=== PATIENT | female | born 1955 | race Caucasian/White ===

== ENCOUNTER 2017-03-06 15:47 | Emergency (ER) | payer OTHER ==
[~2017-03-06] VITALS: Ht 154.9 cm; Wt 59.0 kg
[2017-03-06] MEDS ORDERED: LIDODERM 5% P1 PATCH TD (19:11)
[2017-03-06] MEDS ORDERED: FLEXERIL5 MG PO (19:11)
[2017-03-06] MEDS ORDERED: MOTRIN600 MG PO (19:11)
[2017-03-06 19:31] VITALS: BP 125/86
== END 2017-03-06 19:40 | disposition home or self-care (01) ==
LOC: EME 15:47
DX: M54.12 Radiculopathy, cervical region (principal); M62.838 Other muscle spasm; M25.519 Pain in unspecified shoulder; V49.9XXA Car occupant (driver) (passenger) injured in unspecified traffic accident, initial encounter; F17.200 Nicotine dependence, unspecified, uncomplicated
CPT/HCPCS: 72040; 99281; 99284; J1885

== ENCOUNTER 2017-06-17 11:55 | Emergency (ER) | payer OTHER ==
[~2017-06-17] VITALS: Ht 154.9 cm; Wt 55.4 kg
[~2017-06-17 11:55] MED LIST: ENDOCET 5-3251 EACH PO; FLEXERIL5 MG PO; IMITREX50 MG PO; LIDODERM 5% P1 PATCH TD; LOVENOX40 MG/0.4 SC; MOTRIN600 MG PO; NEURONTIN100 MG PO; TOPAMAX100 MG PO; TYLENOL REGULA325 MG PO; ULTRAM50 MG PO; WELLBUTRIN XL150 MG PO
[2017-06-17] MEDS ORDERED: PERCOCET 5/31 TABLET PO (15:50)
[2017-06-17 17:32] VITALS: BP 133/81
== END 2017-06-17 17:32 | disposition home or self-care (01) ==
LOC: EME 11:55
DX: M79.641 Pain in right hand (principal); M79.89 Other specified soft tissue disorders; S52.502D Unspecified fracture of the lower end of left radius, subsequent encounter for closed fracture with routine healing; Z47.89 Encounter for other orthopedic aftercare; S82.401D Unspecified fracture of shaft of right fibula, subsequent encounter for closed fracture with routine healing; S82.201D Unspecified fracture of shaft of right tibia, subsequent encounter for closed fracture with routine healing; W17.81XD Fall down embankment (hill), subsequent encounter; F17.200 Nicotine dependence, unspecified, uncomplicated; F32.9 Major depressive disorder, single episode, unspecified
CPT/HCPCS: 73110; 99281; 99284

== ENCOUNTER 2018-01-19 19:24 | Inpatient (IN) | payer OTHER ==
[~2018-01-19] VITALS: Ht 154.9 cm; Wt 57.1 kg
[~2018-01-19 19:24] MED LIST changes: +PERCOCET 5/31 TABLET PO
[2018-01-19 19:57] LABS: HEMOGLOBIN 14.8 G/DL (11.9-15.5); MCH 32.2 PG (29.0-34.0); MCHC 34.4 G/DL (30.0-36.0); MCV 93.7 FL (83-99); PLATELET COUNT 272 K/uL (156-360); RBC DIS.WIDTH-CV 12.2 % (11.8-14.6); RBC DIS.WIDTH-SD 41.8 % (39-53); RED BLOOD COUNT 4.59 M/uL (3.80-5.20); WHITE BLOOD COUNT 19.8 K/uL (4.1-10.2)
[2018-01-19 20:06] LABS: CHLORIDE 115 mEq/L (99-109); POTASSIUM 4.1 mEq/L (3.7-5.4); SODIUM 144 mEq/L (136-147)
[2018-01-19 20:08] LABS: GLUCOSE 149 mg/dL (70-99)
[2018-01-19 20:12] LABS: GFR ESTIMATE (CALCULATED) > 59 mL/min/
[2018-01-19 20:13] LABS: UREA NITROGEN (BUN) 21 mg/dL (9-23)
[2018-01-20] VITALS (7 sets, daily range): BP systolic 84–131; BP diastolic 48–65
[2018-01-20] MEDS ORDERED: TYLENOL EXTRA500 MG PO (00:48)
[2018-01-20] MEDS ORDERED: OSTEO BI-FLEX1 EAC1 PO (00:49)
[2018-01-20] MEDS ORDERED: TOPAMAX100 MG PO (00:49)
[2018-01-20] MEDS ORDERED: CYMBALTA30 MG PO (00:49)
[2018-01-20] MEDS ORDERED: CALCIUM600 M1 PO (00:50)
[2018-01-20] MEDS ORDERED: ZOFRAN8 MG PO (00:50)
[2018-01-20 18:29] LABS: HEMATOCRIT 36.5 % (36.0-46.0); HEMOGLOBIN 11.7 G/DL (11.9-15.5); MCH 31.2 PG (29.0-34.0); MCHC 32.1 G/DL (30.0-36.0); MCV 97.3 FL (83-99); PLATELET COUNT 213 K/uL (156-360); RBC DIS.WIDTH-CV 12.7 % (11.8-14.6); RBC DIS.WIDTH-SD 45.1 % (39-53); RED BLOOD COUNT 3.75 M/uL (3.80-5.20); WHITE BLOOD COUNT 9.2 K/uL (4.1-10.2)
[2018-01-20 18:34] LABS: CHLORIDE 117 MEQ/L (99-109); CREATININE 0.7 MG/DL (0.6-1.3); GFR ESTIMATE (CALCULATED) > 59 mL/min/; GLUCOSE 153 mg/dL (70-99); POTASSIUM 3.7 MEQ/L (3.7-5.4); SODIUM 143 MEQ/L (136-147); UREA NITROGEN (BUN) 13 mg/dL (9-23)
[2018-01-21 00:10] VITALS: BP 101/55
[2018-01-21 04:29] VITALS: BP 92/52
[2018-01-21 05:52] LABS: HEMATOCRIT 36.4 % (36.0-46.0); HEMOGLOBIN 11.4 G/DL (11.9-15.5); MCH 31.1 PG (29.0-34.0); MCHC 31.3 G/DL (30.0-36.0); MCV 99.2 FL (83-99); PLATELET COUNT 202 K/uL (156-360); RBC DIS.WIDTH-CV 12.9 % (11.8-14.6); RBC DIS.WIDTH-SD 46.9 % (39-53); RED BLOOD COUNT 3.67 M/uL (3.80-5.20); WHITE BLOOD COUNT 9.7 K/uL (4.1-10.2)
[2018-01-21 06:16] LABS: CHLORIDE 117 MEQ/L (99-109); CREATININE 0.9 MG/DL (0.6-1.3); GFR ESTIMATE (CALCULATED) > 59 mL/min/; GLUCOSE 130 mg/dL (70-99); POTASSIUM 4.1 MEQ/L (3.7-5.4); SODIUM 144 MEQ/L (136-147); UREA NITROGEN (BUN) 11 mg/dL (9-23)
[2018-01-21 07:06] VITALS: BP 96/51
[2018-01-21 11:16] VITALS: BP 94/55
[2018-01-21 15:25] VITALS: BP 102/55
[2018-01-21 19:49] VITALS: BP 95/57
[2018-01-22 00:33] VITALS: BP 103/59
[2018-01-22 04:32] VITALS: BP 102/60
[2018-01-22 07:00] VITALS: BP 129/69
[2018-01-22 16:20] VITALS: BP 138/80
[2018-01-23 00:16] VITALS: BP 148/70
[2018-01-23 06:55] LABS: BASOPHIL (%) 0.3 % (0-1); EOSINOPHIL (%) 1.6 % (0-5); EOSINOPHIL COUNT 0.2 K/uL (0-0.3); HEMATOCRIT 30.8 % (36.0-46.0); HEMOGLOBIN 9.8 G/DL (11.9-15.5); IMMATURE GRANULOCYTE (%) 0.6 % (0.0-0.7); LYMPHOCYTE COUNT 1.3 K/uL (1.0-2.8); MCH 30.7 PG (29.0-34.0); MCHC 31.8 G/DL (30.0-36.0); MCV 96.6 FL (83-99); MONOCYTE (%) 10.6 % (3-12); MONOCYTE COUNT 1.1 K/uL (0-0.8); NEUTROPHIL (%) 74.9 % (45-76); PLATELET COUNT 222 K/uL (156-360); RBC DIS.WIDTH-CV 12.6 % (11.8-14.6); RBC DIS.WIDTH-SD 44.8 % (39-53); RED BLOOD COUNT 3.19 M/uL (3.80-5.20); WHITE BLOOD COUNT 10.7 K/uL (4.1-10.2)
[2018-01-23 07:16] LABS: CHLORIDE 115 MEQ/L (99-109); CREATININE 0.6 MG/DL (0.6-1.3); GFR ESTIMATE (CALCULATED) > 59 mL/min/; GLUCOSE 115 mg/dL (70-99); POTASSIUM 3.6 MEQ/L (3.7-5.4); SODIUM 142 MEQ/L (136-147); UREA NITROGEN (BUN) 8 mg/dL (9-23)
[2018-01-23 07:30] VITALS: BP 149/85
[2018-01-23 11:17] VITALS: BP 127/79
[2018-01-23 15:53] VITALS: BP 123/65
[2018-01-24 00:39] VITALS: BP 144/72
[2018-01-24 08:10] VITALS: BP 145/74
[2018-01-24 12:10] VITALS: BP 145/88
[2018-01-24 15:38] VITALS: BP 168/78
[2018-01-24 19:00] VITALS: BP 118/61
[2018-01-24 23:56] VITALS: BP 131/58
[2018-01-25 06:08] LABS: HEMATOCRIT 29.4 % (36.0-46.0); HEMOGLOBIN 9.8 G/DL (11.9-15.5); MCH 31.3 PG (29.0-34.0); MCHC 33.3 G/DL (30.0-36.0); MCV 93.9 FL (83-99); PLATELET COUNT 246 K/uL (156-360); RBC DIS.WIDTH-CV 12.3 % (11.8-14.6); RBC DIS.WIDTH-SD 42.5 % (39-53); RED BLOOD COUNT 3.13 M/uL (3.80-5.20); WHITE BLOOD COUNT 9.8 K/uL (4.1-10.2)
[2018-01-25 06:46] LABS: CHLORIDE 105 MEQ/L (99-109); CREATININE 0.6 MG/DL (0.6-1.3); GFR ESTIMATE (CALCULATED) > 59 mL/min/; GLUCOSE 119 mg/dL (70-99); POTASSIUM 3.3 MEQ/L (3.7-5.4); SODIUM 140 MEQ/L (136-147); UREA NITROGEN (BUN) 4 mg/dL (9-23)
[2018-01-25 08:04] VITALS: BP 164/84
[2018-01-25 15:49] VITALS: BP 134/72
[2018-01-26 00:01] VITALS: BP 136/78
[2018-01-26 08:45] VITALS: BP 169/75
[2018-01-26 15:52] VITALS: BP 154/74
[2018-01-26 23:25] VITALS: BP 131/75
[2018-01-27 06:00] LABS: CHLORIDE 105 MEQ/L (99-109); CREATININE 0.5 MG/DL (0.6-1.3); GFR ESTIMATE (CALCULATED) > 59 mL/min/; GLUCOSE 107 mg/dL (70-99); POTASSIUM 3.9 MEQ/L (3.7-5.4); SODIUM 141 MEQ/L (136-147); UREA NITROGEN (BUN) 4 mg/dL (9-23)
[2018-01-27 08:26] VITALS: BP 143/68
[2018-01-27] MEDS ORDERED: NORCO 5/3251 TABLET PO (11:25)
[2018-01-27 15:54] VITALS: BP 129/76
[2018-01-27 23:51] VITALS: BP 129/75
[2018-01-28 08:02] VITALS: BP 178/83
== END 2018-01-28 15:35 | disposition home health service (06) | DRG 330 ==
LOC: EME → EDBD 19:24 → EME 19:24 → 2EAST 01-20 00:55 → EDOF 01-20 00:55 → ENRESERV 01-20 01:07 → 2EAST 01-20 01:52
PROVIDERS: Physician Assistant Medical; Physician Assistant Surgical; Surgery
DX: K57.20 Diverticulitis of large intestine with perforation and abscess without bleeding (principal); J98.11 Atelectasis; I95.9 Hypotension, unspecified; T40.2X5A Adverse effect of other opioids, initial encounter; Y92.239 Unspecified place in hospital as the place of occurrence of the external cause; R40.0 Somnolence; G43.909 Migraine, unspecified, not intractable, without status migrainosus; F32.9 Major depressive disorder, single episode, unspecified
CPT/HCPCS: 74018; 74177; 80048; 84132; 85025; 85027; 86850; 86900; 86901; 88307; 94799; 97530 GO; 99281; 99285; J0131; J0330; J1100; J1170; J1200; J1650; J1885; J2250; J2405; J2543; J2710; J3010; J3480; J7030; J7040; J7050; J7643; S0028

== ENCOUNTER 2018-02-02 10:43 | Inpatient (IN) | payer OTHER ==
[~2018-02-02] VITALS: Ht 154.9 cm; Wt 55.8 kg
[~2018-02-02 10:43] MED LIST changes: +CALCIUM600 M1 PO; +CYMBALTA30 MG PO; +NORCO 5/3251 TABLET PO; +OSTEO BI-FLEX1 EAC1 PO; +TYLENOL EXTRA500 MG PO; +ZOFRAN8 MG PO
[2018-02-02 12:43] LABS: BASOPHIL (%) 0.7 % (0-1); BASOPHIL COUNT 0.1 K/uL (0-0.1); EOSINOPHIL (%) 0.8 % (0-5); EOSINOPHIL COUNT 0.1 K/uL (0-0.3); HEMOGLOBIN 11.8 G/DL (11.9-15.5); IMMATURE GRANULOCYTE (%) 1.4 % (0.0-0.7); LYMPHOCYTE (%) 13.5 % (15-42); LYMPHOCYTE COUNT 1.6 K/uL (1.0-2.8); MCH 31.5 PG (29.0-34.0); MCHC 33.7 G/DL (30.0-36.0); MCV 93.3 FL (83-99); MONOCYTE (%) 12.1 % (3-12); MONOCYTE COUNT 1.5 K/uL (0-0.8); NEUTROPHIL (%) 71.5 % (45-76); NEUTROPHIL COUNT 8.6 K/uL (1.8-6.4); RBC DIS.WIDTH-CV 12.9 % (11.8-14.6); RBC DIS.WIDTH-SD 43.8 % (39-53); RED BLOOD COUNT 3.75 M/uL (3.80-5.20)
[2018-02-02 12:44] LABS: ALBUMIN 3.5 g/dL (3.2-4.8); CHLORIDE 105 mEq/L (99-109); POTASSIUM 3.8 mEq/L (3.7-5.4); SODIUM 139 mEq/L (136-147)
[2018-02-02 12:46] LABS: GLUCOSE 97 mg/dL (70-99); TOTAL PROTEIN 7.8 g/dL (6.4-8.3)
[2018-02-02 12:48] LABS: TOTAL BILIRUBIN 0.3 mg/dL (0.0-1.0)
[2018-02-02 12:49] LABS: INTER. NORMALIZED RATIO 1.3
[2018-02-02 12:50] LABS: ALKALINE PHOSPHATASE 110 IU/L (3-129); CREATININE 0.9 mg/dL (0.6-1.3)
[2018-02-02 12:51] LABS: AST (GOT) 49 IU/L (2-34); UREA NITROGEN (BUN) 9 mg/dL (9-23)
[2018-02-02 12:52] LABS: DIRECT BILIRUBIN 0.1 mg/dL (0.0-0.3); PTT 29.8 SEC (25-37)
[2018-02-02 12:53] LABS: ALT (GPT) 24 IU/L (3-49); GFR ESTIMATE (CALCULATED) > 59 mL/min/; LIPASE 33 U/L (1.0-51.0)
[2018-02-02 13:21] LABS: PLAT.SUFFICIENCY INCREASED; TROP-I INTERPRETATION NEGATIVE; TROPONIN-I < 0.01 ng/mL (0.0-0.30)
[2018-02-02 14:02] LABS: PLATELET COUNT 437 K/uL (156-360)
[2018-02-02 21:45] VITALS: BP 145/79
[2018-02-02 23:26] VITALS: BP 116/57
[2018-02-03 03:32] VITALS: BP 110/62
[2018-02-03 07:21] VITALS: BP 110/68
[2018-02-03 08:25] LABS: BASOPHIL (%) 0.6 % (0-1); BASOPHIL COUNT 0.1 K/uL (0-0.1); EOSINOPHIL (%) 0.8 % (0-5); EOSINOPHIL COUNT 0.1 K/uL (0-0.3); HEMATOCRIT 32.3 % (36.0-46.0); HEMOGLOBIN 10.5 G/DL (11.9-15.5); IMMATURE GRANULOCYTE (%) 1.3 % (0.0-0.7); LYMPHOCYTE (%) 12.1 % (15-42); LYMPHOCYTE COUNT 1.5 K/uL (1.0-2.8); MCH 30.9 PG (29.0-34.0); MCHC 32.5 G/DL (30.0-36.0); MONOCYTE COUNT 1.6 K/uL (0-0.8); NEUTROPHIL (%) 72.2 % (45-76); NEUTROPHIL COUNT 9.2 K/uL (1.8-6.4); WHITE BLOOD COUNT 12.7 K/uL (4.1-10.2)
[2018-02-03 08:35] LABS: PLATELET COUNT 688 K/uL (156-360)
[2018-02-03 08:42] LABS: ALBUMIN 2.9 G/DL (3.2-4.8); CHLORIDE 108 MEQ/L (99-109); POTASSIUM 4.1 MEQ/L (3.7-5.4); SODIUM 139 MEQ/L (136-147); TOTAL BILIRUBIN 0.3 MG/DL (0.0-1.0)
[2018-02-03 08:48] LABS: ALKALINE PHOSPHATASE 87 IU/L (3-129); ALT (GPT) 14 IU/L (3-49); AST (GOT) 12 IU/L (2-34); CREATININE 0.8 MG/DL (0.6-1.3); GFR ESTIMATE (CALCULATED) > 59 mL/min/; GLUCOSE 118 mg/dL (70-99); TOTAL PROTEIN 5.6 G/DL (6.4-8.3); UREA NITROGEN (BUN) 10 mg/dL (9-23)
[2018-02-03 11:17] VITALS: BP 133/79
[2018-02-03 15:22] VITALS: BP 128/78
[2018-02-03 20:20] VITALS: BP 146/70
[2018-02-04] VITALS (7 sets, daily range): BP systolic 141–160; BP diastolic 67–95
[2018-02-04 06:34] LABS: BASOPHIL (%) 0.9 % (0-1); BASOPHIL COUNT 0.1 K/uL (0-0.1); EOSINOPHIL (%) 1.8 % (0-5); EOSINOPHIL COUNT 0.2 K/uL (0-0.3); HEMATOCRIT 35.5 % (36.0-46.0); HEMOGLOBIN 11.5 G/DL (11.9-15.5); IMMATURE GRANULOCYTE (%) 1.9 % (0.0-0.7); LYMPHOCYTE COUNT 1.8 K/uL (1.0-2.8); MCH 30.4 PG (29.0-34.0); MCHC 32.4 G/DL (30.0-36.0); MCV 93.9 FL (83-99); MONOCYTE (%) 10.5 % (3-12); MONOCYTE COUNT 1.1 K/uL (0-0.8); NEUTROPHIL (%) 67.9 % (45-76); NEUTROPHIL COUNT 7.3 K/uL (1.8-6.4); PLATELET COUNT 742 K/uL (156-360); RBC DIS.WIDTH-CV 12.8 % (11.8-14.6); RBC DIS.WIDTH-SD 43.9 % (39-53); RED BLOOD COUNT 3.78 M/uL (3.80-5.20); WHITE BLOOD COUNT 10.8 K/uL (4.1-10.2)
[2018-02-04 06:59] LABS: ALBUMIN 2.9 G/DL (3.2-4.8); ALKALINE PHOSPHATASE 88 IU/L (3-129); ALT (GPT) 13 IU/L (3-49); AST (GOT) 15 IU/L (2-34); CHLORIDE 105 MEQ/L (99-109); CREATININE 0.7 MG/DL (0.6-1.3); GFR ESTIMATE (CALCULATED) > 59 mL/min/; GLUCOSE 102 mg/dL (70-99); POTASSIUM 4.2 MEQ/L (3.7-5.4); SODIUM 138 MEQ/L (136-147); TOTAL PROTEIN 5.6 G/DL (6.4-8.3); UREA NITROGEN (BUN) 7 mg/dL (9-23)
[2018-02-04 07:01] LABS: TOTAL BILIRUBIN 0.4 MG/DL (0.0-1.0)
[2018-02-05 04:00] VITALS: BP 137/77
[2018-02-05 08:22] VITALS: BP 126/83
[2018-02-05 12:19] VITALS: BP 148/73
[2018-02-05 16:56] VITALS: BP 133/79
[2018-02-05 18:55] VITALS: BP 136/71
[2018-02-05 23:00] VITALS: BP 155/77
[2018-02-06 03:25] VITALS: BP 131/76
[2018-02-06 05:49] LABS: HEMATOCRIT 32.2 % (36.0-46.0); HEMOGLOBIN 10.5 G/DL (11.9-15.5); MCH 30.3 PG (29.0-34.0); MCHC 32.6 G/DL (30.0-36.0); MCV 93.1 FL (83-99); PLATELET COUNT 627 K/uL (156-360); RBC DIS.WIDTH-CV 12.7 % (11.8-14.6); RBC DIS.WIDTH-SD 43.1 % (39-53); RED BLOOD COUNT 3.46 M/uL (3.80-5.20); WHITE BLOOD COUNT 7.4 K/uL (4.1-10.2)
[2018-02-06 07:15] VITALS: BP 143/75
[2018-02-06] MEDS ORDERED: LEVAQUIN750 MG PO (10:26)
[2018-02-06 12:10] VITALS: BP 146/78
== END 2018-02-06 13:40 | disposition home health service (06) | DRG 373 ==
LOC: EME 10:43 → 2EAST 15:21 → EDOF 15:21 → ENRESERV 20:42 → 2EAST 21:34
PROVIDERS: Emergency Medicine; Physician Assistant Medical; Surgery
PROC: 0W9G30Z Drainage of Peritoneal Cavity with Drainage Device, Percutaneous Approach (ICD-10-PCS; principal; 2018-02-02)
DX: K65.1 Peritoneal abscess (principal); B96.1 Klebsiella pneumoniae [K. pneumoniae] as the cause of diseases classified elsewhere; B96.20 Unspecified Escherichia coli [E. coli] as the cause of diseases classified elsewhere; K59.09 Other constipation; F32.9 Major depressive disorder, single episode, unspecified; G43.909 Migraine, unspecified, not intractable, without status migrainosus; M19.90 Unspecified osteoarthritis, unspecified site; Z93.3 Colostomy status; Z90.49 Acquired absence of other specified parts of digestive tract; Z87.891 Personal history of nicotine dependence
CPT/HCPCS: 36415; 49406; 74177; 80048; 80048 91; 80053; 80076; 81003; 83497 90; 83605; 83690; 84484; 85025; 85025 91; 85027; 85610; 85730; 87040; 87070; 87075; 87076; 87077; 87185; 87186; 87205; 99281; 99285; C1729; C1769; J1200; J1650; J2250; J2270; J2310; J2405; J2543; J2765; J3010; J7030; J7050